=== PATIENT | female | born 1990 | race Caucasian/White ===

== ENCOUNTER 2018-03-13 19:26 | Emergency (ER) | payer SELFPAY ==
[2018-03-13 19:28] VITALS: BP 110/86; PULSE 114; RESP 16; TEMP 37.1; O2SAT 98; BMI 20.3
[2018-03-13] MEDS: Ondansetron ODT 4 MG Tablet PO (20:05)
[2018-03-13] MEDS: Clindamycin HCl 150 MG Capsule 300 MG PO (20:35)
--- NOTE | 2018-03-13 20:36 | ED.DCSUM_ITS ---
- ER Visit Summary Date of Service: 03/13/18 Chief Complaint: [Left upper dental pain and vomiting] History of Present Illness: The patient is a 27 F [presents the emergency department with vomiting ?4 or 5 episodes since 1:30 AM. Patient also states that she developed some left-sided facial swelling today. Patient started having dental pain about 2 days ago. Patient denies any fever. Describes minimal abdominal discomfort. Last menstrual period was 2 or 3 weeks ago. Patient denies any diarrhea. Patient denies any fever. Patient states that her brother had influenza a few weeks ago.] Physical Examination: [HEENT-PERRLA, EOMI. Cranial nerves II through XII grossly intact. TMs clear. Mucous membranes moist. No adenopathy. Patient has left upper facial swelling. Patient has tenderness over the second left upper molar with some gingival erythema noted but no discrete abscess palpated and there is no fluctuance. There is no facial cellulitis. Cardiovascular-regular rate and rhythm without murmur or ectopy Lungs-clear to auscultation, chest wall stable without crepitus or subcu emphysema Abdomen-normoactive bowel sounds, soft. Patient has some mild epigastric tenderness on palpation. There is no rebound, rigidity, or perineal signs. Extremities-intact ?4, normal range of motion, normal pulses, atraumatic] Test Results: [None indicated] Emergency Department Course and Treatment: [Was given Zofran and clindamycin. Patient was given a p.o. challenge which she tolerated well.] Treatment Plan: [Patient will be given Zofran for home as well as clindamycin and [place] for pain. Patient advised to follow-up with the dentist] Disposition: [Discharged home stable condition] Impression: [Dental abscess Vomiting] This note was generated with [employer] dictation software. It may contain incorrect words, spelling, and punctuation that were not noted in review of the chart prior to signing ED Disposition - Plan for ED Patient: Chief Complaint: Nausea/Vomiting Referrals: [facility] Doctor,Out of [Primary Care Provider] -
--- NOTE | 2018-03-13 20:36 | ED.DEP ---
ED Disposition - Plan for ED Patient: Chief Complaint: Nausea/Vomiting Instructions: ED Nausea Vomiting, ED Abscess Tooth Prescriptions: Ondansetron [Zofran Odt] 4 mg PO Q8H PRN PRN #10 tab PRN Reason: Nausea Hydrocodone/Acetaminophen [[place] 5-325 Tablet] 1 - 2 ea PO 4X/DAY PRN PRN 3 Days #12 tab PRN Reason: Pain Clindamycin HCl [Cleocin] 300 mg PO Q6H #40 cap Referrals: [facility],Out of [Primary Care Provider] - Additional Instructions: see a dentist
[2018-03-13 21:28] VITALS: BP 129/77; PULSE 61; RESP 15; O2SAT 98
== END 2018-03-13 21:29 | disposition home or self-care (01) ==
PROVIDERS: Emergency Provider Emergency Medicine
DX: K04.7 Periapical abscess without sinus (principal); R11.10 Vomiting, unspecified; F32.9 Major depressive disorder, single episode, unspecified; Z79.899 Other long term (current) drug therapy
CPT/HCPCS: 99283

== ENCOUNTER 2018-04-20 21:43 | Inpatient (IN) | payer SELFPAY ==
[2018-04-20 21:45] VITALS: BP 125/68; PULSE 132; RESP 20; TEMP 36.2; O2SAT 94; BMI 22.0
--- NOTE | 2018-04-20 22:08 | ED.DCSUM_ITS ---
- ER Visit Summary Date of Service: 04/20/18 Chief Complaint: [] Nausea vomiting diarrhea and abdominal pain History of Present Illness: The patient is a 27 F with abdominal pain for the last 2 days. Gradual onset continuous squeezing discomfort. Just feels uncomfortable per patient. She has had 2 episodes of emesis this evening only. She had 7 episodes of diarrhea loose watery over the last 2 days. She thinks it could have been from a bad cappuccino. She has some mild low back soreness. No urinary symptoms. She reports a temperature of 102 this evening. She is Tylenol 3 hours ago and that resolved. Physical Examination: [] Vital signs reviewed General: Well-nourished well-developed Head: Normocephalic atraumatic Eyes: Pupils equal round and reactive to light extraocular movements intact ENT: TMs clear no hemotympanum no trauma Neck: Nontender full range of motion Cardiovascular: Regular tachycardia with normal rhythm no murmurs normal S1-S2 Respiratory: No distress clear to auscultation bilaterally chest nontender Abdomen: Soft nontender nondistended normal bowel sounds no masses Back: Nontender no CVA tenderness Extremities: Nontender active range of motion ?4 extremities no trauma Skin: Normal color no trauma Neuro alert oriented cranial nerves II through XII intact normal strength sensation reflexes Test Results: [] Emergency Department Course and Treatment: [] Given IV fluids Toradol and Zofran for her symptoms. Lab work obtained. Shows a lipase of 1660. LFTs normal except AST 14. Potassium 3.4. White count 15.7. and UA pending at this time. Patient felt much better after treatment. Still cannot give a urine she will be given a second liter fluid. At this time she still has her gallbladder but is not having any pain in that area. On reevaluation she has mild pain rated her pancreas. She does not drink alcohol and has had 2 medications. Will be discussed with the hospitalist and admitted. Treatment Plan: [] Disposition: [] Impression: [] Acute pancreatitis Acute diarrheal disease This note was generated with [employer] software. It may contain incorrect words, spelling, and punctuation that were not noted in review of the chart prior to signing ED Disposition - Plan for ED Patient: Chief Complaint: Nausea/Vomiting/Diarrhea Referrals: [facility] Doctor,Out of [Primary Care Provider] -
[2018-04-20] MEDS: Ondansetron 4 MG/2 ML Vial IV (22:16)
[2018-04-20] MEDS: Ketorolac 30 MG/ML Syringe IV (22:16)
[2018-04-20] MEDS: 0.9% Normal Saline 1,000 ML 1000 ML IV (22:16)
[2018-04-20 22:43] LABS: AST(SGOT) 14 U/L (15-37); Alanine Aminotransfer ALT/SGPT 20 U/L (13-56); Albumin, Serum 3.2 g/dL (3.2-5.0); Alkaline Phosphatase 57 U/L (45-117); Anion Gap 7 (5-15); BUN 6 mg/dL (7-18); BUN/Creat Ratio 6.4 RATIO (10-20); Bilirubin, Direct 0.12 mg/dL (0.00-0.30); Calcium,Total 8.4 mg/dL (8.5-10.1); Chloride 103 mmol/L (98-107); Creatinine, Serum 0.94 mg/dL (0.55-1.02); EST Glomerular Filtration Rate 75 mL/min (>60); Est Glom Filt Rate - Afr Amer 90 mL/min (>60); Estimated Creatinine Clearance 76.94 ml/min; Globulin 4.1 g/dL (2.2-4.2); Glucose 113 mg/dL (74-106); Lipase 1660 U/L (73-393); Potassium 3.4 mmol/L (3.5-5.1); Protein, Total 7.3 g/dL (6.4-8.2); Sodium Level 136 mmol/L (136-145)
[2018-04-20 22:48] LABS: Absolute Lymphocyte Count 1.39 X10^3/ul (0.83-4.51); Absolute Neutrophil Count 12.6 X10^3/uL (2.0-7.7); Basophil# 0.03 X10^3/uL; Basophil% 0.2 % (0-1); Eosinophil# 0.11 X10^3/uL; Eosinophils% 0.7 % (0-5); Hematocrit 41.1 % (37-47); Hemoglobin 13.6 g/dl (12.0-15.0); Lymphocyte # 1.39 X10^3/ul (4.0); Lymphocyte % 8.8 % (19-41); Mean Corp Hgb Conc 33.1 g/gl (32-36); Mean Corpuscular Hgb 27.7 pg (27.0-32.0); Mean Corpuscular Volume 83.7 fL (81-99); Mean Platelet Vol. 9.7 fl (6.2-12.0); Monocyte# 1.54 X10^3/uL; Monocyte% 9.8 % (0-10); Neutrophil # 12.59 X10^3/uL (2.7-7.7); Neutrophil % 80.1 % (47-70); Platelet Count 243 K/mm3 (150-450); RBC Distribution Width CV 13.2 % (11.6-14.6); RBC Distribution Width SD 40.3 fl (35.1-43.9); Red Blood Count 4.91 M/mm3 (4.2-5.4); White Blood Count 15.7 K/mm3 (4.4-11.0)
[2018-04-20 23:09] LABS: Differential Indicated SCAN CRITERIA MET; POSITIVE COUNT NO; POSITIVE DIFFERENTIAL YES; POSITIVE MORPHOLOGY NO
[2018-04-20 23:34] LABS: Differential Comment SCANNED
--- NOTE | 2018-04-20 23:41 | PCM.HP.STD ---
Problem List (1) Gastroenteritis Status: Acute (2) Pancreatitis Status: Acute (3) SIRS (systemic inflammatory response syndrome) Status: Acute History of Present Illness Date of Admission: 04/20/18 Chief Complaint: Intractable nausea, vomiting, diarrhea and abdominal pain. 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 Patient had been having umbilical abdominal tenderness. Patient does not feeling better and presented to the emergency room. Patient was noted to be tachycardic in the 130s. Patient did have a lipase that was 1600. Patient denies any alcohol consumption. Patient has never felt like this before. Patient denies any food poisoning but did state that she had some still coffee out of a coffee machine but nothing highly abnormal about that. 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 Review of Systems Constitutional: Reports: Chills, Fever - 102 at home. Denies: Weight Change Eyes: Denies: Blurred vision, Double vision HEENT: Denies: Head Aches, Sinus Congestion, Sinus Drainage Cardiovascular: Denies: Chest Pain, Palpitations Respiratory: Denies: Cough, Shortness of breath at rest, Sputum production Gastrointestinal: Reports: Abdominal Pain, Diarrhea, Nausea, Vomiting Genitourinary: Denies: Dysuria Gynecological: Reports: - - Last menstrual period was 3 weeks ago Musculoskeletal: Denies: Joint Pain, Joint Tenderness Skin: Denies: Rash, Wounds Neurological: Denies: Numbness, Tingling, Focal weakness Psychiatric: Reports: Depression. Denies: Anxiety Hematologic/ Lymphatic: Denies: Easy Bruising, Easy Bleeding, Hx of blood clot Comment: Otherwise all review systems are negative except for as mentioned above in the HPI and in the ROS. VTE Information - Inpt Only VTE Present on Admission: No VTE Mechan Device Prophylaxis: None VTE Pharm Prophylaxis ordered?: No Reason prophylaxis not ordered:: Procedure Not Indicated Patient Problems: Active and Suspected Problems Gastroenteritis (Acute) Pancreatitis (Acute) SIRS (systemic inflammatory response syndrome) (Acute) - Physical Exam General: Alert, No apparent distress HEENT: Atraumatic, Normocephalic Oral: Moist Mucosa, No Gingival or Mucosal Lesions/ Ulcerations Neck: No Nodes, Thyroid Normal Size and Texture Lungs: Clear to auscultation, Normal air movement, No rhonchi, No wheeze Cardiovascular: Regular rate, Regular Rhythm, Normal S1, Normal S2, No murmurs Abdomen: Bowel Sounds Present, Soft, Non-Distended, - - Epigastric abdominal tenderness Extremities: No clubbing, No edema, No Calf Tenderness Skin: No rashes, No breakdown Psych/Mental Status: Normal Affect, Appropriate Vital Signs Temp Pulse Resp BP Pulse Ox 36.2 C L 132 H 20 H 125/68 H 94 04/20/18 21:45 04/20/18 21:45 04/20/18 21:45 04/20/18 21:45 04/20/18 21:45 Oxygen Delivery Method Room Air Weight: 58.2 kg Body Mass Index (BMI) 22.0 Laboratory Tests Past 24 Hrs 04/20/18 04/20/18 22:15 22:15 WBC 15.7 H RBC 4.91 Hgb 13.6 Hct 41.1 MCV 83.7 MCH 27.7 MCHC 33.1 RDW 13.2 RDW Differential 40.3 Plt Count 243 MPV 9.7 Immature Gran % (Auto) 0.400 Neut % (Auto) 80.1 H Lymph % (Auto) 8.8 L [place] % (Auto) 9.8 Eos % (Auto) 0.7 Baso % (Auto) 0.2 Absolute Neuts (auto) 12.6 H Absolute Lymphs (auto) 1.39 Total Counted Not Reportable Differential Comment SCANNED Sodium 136 Potassium 3.4 L Chloride 103 Carbon Dioxide 26.0 Anion Gap 7 BUN 6 L Creatinine 0.94 Estim Creat Clear Calc 76.94 Est GFR (MDRD) Af Amer 90 Est GFR (MDRD) Non-Af 75 BUN/Creatinine Ratio 6.4 L Glucose 113 H Calcium 8.4 L Total Bilirubin 0.30 Direct Bilirubin 0.12 AST 14 L ALT 20 Alkaline Phosphatase 57 Total Protein 7.3 Albumin 3.2 Globulin 4.1 Lipase 1660 H Assessment/Plan All Active Problems Gastroenteritis (Acute) Pancreatitis (Acute) SIRS (systemic inflammatory response syndrome) (Acute) 1. Gastroenteritis Presumably viral Will do supportive management for now but if seems to be refractory then could consider additional studies for bacterial gastroenteritis 2. Acute pancreatitis Patient has never had pancreatitis before. She does not drink. Patient's LFTs were normal and patient is not having any right upper quadrant tenderness. I feel that pancreatitis may be just tied in with a viral etiology of her gastroenteritis. Plan is to give her IV fluids and reevaluate in the morning. If seems to be tolerating diet and her lipase is going down that I would not recommend any additional workup, however, if she does get worse or would like to be starts going up then consideration for could be for an ultrasound or CAT scan of the abdomen and pelvis. 3. Systemic inflammatory response syndrome: Secondary to above. 4. DVT prophylaxis: Patient is low risk and DVT prophylaxis is not indicated at this time. Code Visit Inpatient E&M: 51708 Init Hosp L2
[2018-04-20 23:45] LABS: Bacteria 0 SEEN /hpf (None Seen); Red Blood Cells-Urine 0 SEEN /hpf (0-5)
--- NOTE | 2018-04-20 23:47 | HP.PCM_ITS ---
Problem List (1) Gastroenteritis Status: Acute (2) Pancreatitis Status: Acute (3) SIRS (systemic inflammatory response syndrome) Status: Acute History of Present Illness Date of Admission: 04/20/18 Chief Complaint: Intractable nausea, vomiting, diarrhea and abdominal pain. 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 Patient had been having umbilical abdominal tenderness. Patient does not feeling better and presented to the emergency room. Patient was noted to be tachycardic in the 130s. Patient did have a lipase that was 1600. Patient denies any alcohol consumption. Patient has never felt like this before. Patient denies any food poisoning but did state that she had some still coffee out of a coffee machine but nothing highly abnormal about that. 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 Review of Systems Constitutional: Reports: Chills, Fever - 102 at home. Denies: Weight Change Eyes: Denies: Blurred vision, Double vision HEENT: Denies: Head Aches, Sinus Congestion, Sinus Drainage Cardiovascular: Denies: Chest Pain, Palpitations Respiratory: Denies: Cough, Shortness of breath at rest, Sputum production Gastrointestinal: Reports: Abdominal Pain, Diarrhea, Nausea, Vomiting Genitourinary: Denies: Dysuria Gynecological: Reports: - - Last menstrual period was 3 weeks ago Musculoskeletal: Denies: Joint Pain, Joint Tenderness Skin: Denies: Rash, Wounds Neurological: Denies: Numbness, Tingling, Focal weakness Psychiatric: Reports: Depression. Denies: Anxiety Hematologic/ Lymphatic: Denies: Easy Bruising, Easy Bleeding, Hx of blood clot Comment: Otherwise all review systems are negative except for as mentioned above in the HPI and in the ROS. VTE Information - Inpt Only VTE Present on Admission: No VTE Mechan Device Prophylaxis: None VTE Pharm Prophylaxis ordered?: No Reason prophylaxis not ordered:: Procedure Not Indicated Patient Problems: Active and Suspected Problems Gastroenteritis (Acute) Pancreatitis (Acute) SIRS (systemic inflammatory response syndrome) (Acute) - Physical Exam General: Alert, No apparent distress HEENT: Atraumatic, Normocephalic Oral: Moist Mucosa, No Gingival or Mucosal Lesions/ Ulcerations Neck: No Nodes, Thyroid Normal Size and Texture Lungs: Clear to auscultation, Normal air movement, No rhonchi, No wheeze Cardiovascular: Regular rate, Regular Rhythm, Normal S1, Normal S2, No murmurs Abdomen: Bowel Sounds Present, Soft, Non-Distended, - - Epigastric abdominal tenderness Extremities: No clubbing, No edema, No Calf Tenderness Skin: No rashes, No breakdown Psych/Mental Status: Normal Affect, Appropriate Vital Signs Temp Pulse Resp BP Pulse Ox 36.2 C L 132 H 20 H 125/68 H 94 04/20/18 21:45 04/20/18 21:45 04/20/18 21:45 04/20/18 21:45 04/20/18 21:45 Oxygen Delivery Method Room Air Weight: 58.2 kg Body Mass Index (BMI) 22.0 Laboratory Tests Past 24 Hrs 04/20/18 04/20/18 22:15 22:15 WBC 15.7 H RBC 4.91 Hgb 13.6 Hct 41.1 MCV 83.7 MCH 27.7 MCHC 33.1 RDW 13.2 RDW Differential 40.3 Plt Count 243 MPV 9.7 Immature Gran % (Auto) 0.400 Neut % (Auto) 80.1 H Lymph % (Auto) 8.8 L [place] % (Auto) 9.8 Eos % (Auto) 0.7 Baso % (Auto) 0.2 Absolute Neuts (auto) 12.6 H Absolute Lymphs (auto) 1.39 Total Counted Not Reportable Differential Comment SCANNED Sodium 136 Potassium 3.4 L Chloride 103 Carbon Dioxide 26.0 Anion Gap 7 BUN 6 L Creatinine 0.94 Estim Creat Clear Calc 76.94 Est GFR (MDRD) Af Amer 90 Est GFR (MDRD) Non-Af 75 BUN/Creatinine Ratio 6.4 L Glucose 113 H Calcium 8.4 L Total Bilirubin 0.30 Direct Bilirubin 0.12 AST 14 L ALT 20 Alkaline Phosphatase 57 Total Protein 7.3 Albumin 3.2 Globulin 4.1 Lipase 1660 H Assessment/Plan All Active Problems Gastroenteritis (Acute) Pancreatitis (Acute) SIRS (systemic inflammatory response syndrome) (Acute) 1. Gastroenteritis * Presumably viral * Will do supportive management for now but if seems to be refractory then could consider additional studies for bacterial gastroenteritis 2. Acute pancreatitis * Patient has never had pancreatitis before. She does not drink. Patient's LFTs were normal and patient is not having any right upper quadrant tenderness. I feel that pancreatitis may be just tied in with a viral etiology of her gastroenteritis. * Plan is to give her IV fluids and reevaluate in the morning. If seems to be tolerating diet and her lipase is going down that I would not recommend any additional workup, however, if she does get worse or would like to be starts going up then consideration for could be for an ultrasound or CAT scan of the abdomen and pelvis. 3. Systemic inflammatory response syndrome: Secondary to above. 4. DVT prophylaxis: Patient is low risk and DVT prophylaxis is not indicated at this time. Code Visit Inpatient E&M: 08154 Init Hosp L2
[2018-04-20 23:53] VITALS: BP 105/80; PULSE 80; RESP 18; O2SAT 98
[2018-04-20 23:53] LABS: Color, Urine Yellow (Yellow); Glucose, Dipstick Normal (Normal); Leukocyte Esterase-Dipstick 25 /ul (Negative); Nitrite-Dipstick Negative (Negative); Occult Blood-Urine 25 /ul (Negative); Protein-Dipstick 30 mg/dl (Negative); Urine Clarity Sl. Cloudy (Clear); Urine Urobilinogen Normal (Normal)
[2018-04-20 23:55] LABS: Internal QC Validated? YES +Cl - CLEAR BKGD; Pregnancy, Urine Negative Negative
[2018-04-20 23:56] LABS: Urine Bilirubin Dipstick 1 mg/dL (Negative)
[2018-04-20 23:57] LABS: Ketone-Dipstick 150 mg/dl (Negative)
[2018-04-21] VITALS (8 sets, daily range): BP systolic 101–118; BP diastolic 60–74; PULSE 95–130; RESP 16–18; TEMP 36.8–39.4; O2SAT 96–100; BMI 23.1
[2018-04-21] LABS: Squamous Epithelial Cells - UA 10-25 SEEN /hpf (5-10); White Blood Cells 0-5 SEEN /hpf (0-5)
[2018-04-21 00:01] LABS: Mucous, Urine 3+ /hpf (<or=2+)
[2018-04-21] MEDS: FLUoxetine 20 MG Capsule 40 MG PO ×2 (01:05→09:55)
[2018-04-21] MEDS: 0.9% Normal Saline 1,000 ML 150 ML IV ×4 (01:05→22:30)
[2018-04-21] MEDS: Morphine 2 MG/ML Syringe IV ×5 (01:05→22:30)
[2018-04-21] MEDS: 0.9% NaCl Peripheral Flush Adult/Peds IV ×2 (01:18→16:16)
[2018-04-21] MEDS: Acetaminophen 325 MG Tablet 650 MG PO ×2 (05:07→11:31)
[2018-04-21] MEDS: oxyCODONE 5 MG Tablet PO (05:10)
[2018-04-21 06:00] LABS: Absolute Lymphocyte Count 0.81 X10^3/ul (0.83-4.51); Absolute Neutrophil Count 7.6 X10^3/uL (2.0-7.7); Basophil# 0.02 X10^3/uL; Basophil% 0.2 % (0-1); Eosinophil# 0.04 X10^3/uL; Eosinophils% 0.4 % (0-5); Hematocrit 36.2 % (37-47); Hemoglobin 11.6 g/dl (12.0-15.0); Lymphocyte # 0.81 X10^3/ul (4.0); Lymphocyte % 8.2 % (19-41); Mean Corpuscular Hgb 27.1 pg (27.0-32.0); Mean Corpuscular Volume 84.6 fL (81-99); Mean Platelet Vol. 9.2 fl (6.2-12.0); Monocyte# 1.39 X10^3/uL; Neutrophil # 7.64 X10^3/uL (2.7-7.7); Neutrophil % 77.1 % (47-70); Platelet Count 199 K/mm3 (150-450); RBC Distribution Width CV 13.4 % (11.6-14.6); RBC Distribution Width SD 41.1 fl (35.1-43.9); Red Blood Count 4.28 M/mm3 (4.2-5.4); White Blood Count 9.9 K/mm3 (4.4-11.0)
[2018-04-21 06:08] LABS: POSITIVE COUNT NO; POSITIVE DIFFERENTIAL NO; POSITIVE MORPHOLOGY NO
[2018-04-21 06:41] LABS: Anion Gap 7 (5-15); BUN 5 mg/dL (7-18); BUN/Creat Ratio 6.6 RATIO (10-20); Chloride 107 mmol/L (98-107); Cholesterol 105 mg/dL (200); Creatinine, Serum 0.76 mg/dL (0.55-1.02); EST Glomerular Filtration Rate 95 mL/min (>60); Est Glom Filt Rate - Afr Amer 116 mL/min (>60); Estimated Creatinine Clearance 91.16 ml/min; Glucose 112 mg/dL (74-106); High Density Lipoprotein 45 mg/dL; Lipase 1822 U/L (73-393); Potassium 3.3 mmol/L (3.5-5.1); Sodium Level 135 mmol/L (136-145); Triglycerides 80 mg/dL; Very Low Density Lipoprotein 16 mg/dL (5-40)
[2018-04-21] MEDS: Ondansetron 4 MG/2 ML Vial IV ×2 (08:35→16:16)
[2018-04-21] MEDS: Famotidine 20 MG Tablet PO ×2 (09:55→22:38)
[2018-04-21 10:04] LABS: Pathologist Review Reviewed
--- NOTE | 2018-04-21 11:31 | CT_ITS ---
STUDY: CT ABDOMEN AND PELVIS WITH CONTRAST REASON FOR EXAM: Female, 27 years old. Pain. Nausea and vomiting. RADIATION DOSAGE (If Supplied By Facility): CTDIvol = ( 12.78 ) mGy, DLP = ( 584.28 ) mGycm TECHNIQUE: Transaxial images were obtained from the dome of the diaphragm to the symphysis pubis without oral contrast. 100 ml of Isovue 300 contrast was administered. Sagittal and coronal images were reconstructed. Individualized dose optimization techniques were used for this CT. COMPARISON: None. FINDINGS: The visualized lung bases are unremarkable. The visualized portions of the heart are within normal limits. Normal liver. Normal gallbladder and extrahepatic biliary system. Normal spleen. Normal pancreas. Normal bilateral adrenal glands. Normal right kidney. Normal left kidney. Normal visualized stomach. Normal small intestine. Diffuse wall thickening of the colon. There are surgical clips in the region of the appendix consistent with a prior appendectomy. Normal abdominal aorta. Normal inferior vena cava. Normal retroperitoneum. Normal urinary bladder. Normal visualized uterus. Normal abdominal wall. Normal osseous structures. CT/Abdomen/Pelvis W IV Cont ONLY IMPRESSION: Colitis with diffuse wall thickening could be infectious or inflammatory. No obstruction. Electronically Signed: Ryan Bonilla MD at 12:30 EDT , Service support ,
--- NOTE | 2018-04-21 11:33 | PCM.PN.HOSP ---
Patient Problems: Active and Suspected Problems (Last Updated 04/20/18 @ 23:42 by Juan J Riggins DO) Gastroenteritis (Acute) Pancreatitis (Acute) SIRS (systemic inflammatory response syndrome) (Acute) Subjective: Cc: Abdominal pain, diarrhea Objective: This is a 27-year-old female who presented with abdominal pain and diarrhea, CT scan of the abdomen and pelvis showed colitis with diffuse wall thickening , diffuse positive. Vitals/I&O's: Vital Signs Temp Pulse Resp BP Pulse Ox 99.6 F H 104 H 16 101/64 96 04/21/18 07:28 04/21/18 07:28 04/21/18 07:28 04/21/18 07:28 04/21/18 07:28 Oxygen Delivery Method Room Air Weight: 59.2 kg Body Mass Index (BMI) 23.1 Intake and Output for Last 24 Hours 04/19/18 04/20/18 04/21/18 23:59 23:59 23:59 Intake Total 1900 / 1900 Output Total 275 / 275 Balance 1625 / 1625 General: Alert, Oriented x3 Oral: Moist Mucosa Neck: Supple, No JVD Lungs: Clear to auscultation Cardiovascular: Regular rate, Normal S1, Normal S2 Abdomen: Bowel Sounds Present, Non Tender Extremities: No edema Laboratory Results 04/21/18 05:40: WBC 9.9, RBC 4.28, Hgb 11.6 L, Hct 36.2 L, MCV 84.6, MCH 27.1, MCHC 32.0, RDW 13.4, RDW Differential 41.1, Plt Count 199, MPV 9.2, Immature Gran % (Auto) 0.100, Neut % (Auto) 77.1 H, Lymph % (Auto) 8.2 L, Trigg % (Auto) 14.0 H, Eos % (Auto) 0.4, Baso % (Auto) 0.2, Absolute Neuts (auto) 7.6, Absolute Lymphs (auto) 0.81 L, Total Counted Not Reportable 04/21/18 05:40: Sodium 135 L, Potassium 3.3 L, Chloride 107, Carbon Dioxide 21.0, Anion Gap 7, BUN 5 L, Creatinine 0.76, Estim Creat Clear Calc 91.16, Est GFR (MDRD) Af Amer 116, Est GFR (MDRD) Non-Af 95, BUN/Creatinine Ratio 6.6 L, Glucose 112 H, Calcium 7.0 L, Triglycerides 80, Cholesterol 105, LDL Cholesterol 44, VLDL Cholesterol 16, HDL Cholesterol 45, Lipase 1822 H Current Medications Acetaminophen (Tylenol) 650 mg PO Q6H PRN PRN PRN Reason: Mild Pain (1-3)/Temp > 100.7 F Last Admin: 04/21/18 11:31 Dose: 650 mg Albuterol Sulfate (Ventolin Hfa (Sp)) 1 puff INHALATION Q6H PRN PRN PRN Reason: DYSPNEA/WHEEZING/SOB Famotidine (Pepcid) 20 mg PO BID [facility] Last Admin: 04/21/18 09:55 Dose: 20 mg Fluoxetine HCl (Prozac) 40 mg PO DAILY [facility] Last Admin: 04/21/18 09:55 Dose: 40 mg Sodium Chloride () 1,000 mls @ 150 mls/hr IV .Q6H40M [facility] Last Admin: 04/21/18 07:09 Dose: 150 mls/hr Magnesium Hydroxide (Milk Of Magnesia) 30 ml PO DAILY PRN PRN PRN Reason: Constipation Morphine Sulfate () 2 - 4 mg IV Q4H PRN PRN PRN Reason: MOD-SEVERE PAIN (4-10/10) Last Admin: 04/21/18 08:35 Dose: 2 mg Morphine Sulfate () 2 - 4 mg IV Q4H PRN PRN PRN Reason: MOD-SEVERE PAIN (4-10/10) Nutritional Formula (Lactose Free) (Ensure Clear) 120 ml PO 4X/DAY [facility] Ondansetron HCl (Zofran) 4 mg IV Q8H PRN PRN PRN Reason: NAUSEA Last Admin: 04/21/18 08:35 Dose: 4 mg Oxycodone HCl (Oxyir) 5 - 10 mg PO Q4H PRN PRN PRN Reason: MOD-SEVERE PAIN (4-10/10) Last Admin: 04/21/18 05:10 Dose: 5 mg Sodium Chloride () 5 - 30 ml IV UD PRN PRN Reason: SALINE FLUSH Last Admin: 04/21/18 01:18 Dose: 10 ml Medical Necessity - Tobacco Use Smoking Status: Former smoker Tobacco Use: Non-smoker Assessment/Plan All Active Problems (Last Updated 04/20/18 @ 23:42 by Juan J Riggins DO) Gastroenteritis (Acute) Pancreatitis (Acute) SIRS (systemic inflammatory response syndrome) (Acute) 1. Acute C. difficile colitis; we have started the patient on oral Vancocin 2. Elevated lipase consistent with pancreatitis; may be related to infectious process above. 3. Dehydration; continue IV hydration. 4. Early sepsis; will obtain lactic acid level, will continue on aggressive IV fluids. 5. Early ambulation for DVT prophylaxis. 6. Hypokalemia; this will be replaced with KCl. Code Visit Inpatient E&M: 14988 Subs Hosp L3
--- NOTE | 2018-04-21 11:56 | NURSING ---
PT DOWN TO CT SCAN IN WC
[2018-04-21 12:19] LABS: Lactic Acid 1.5 mmol/L (0.4-2.0)
--- NOTE | 2018-04-21 13:37 | CASEMGMT ---
Social Work Note Charge Nurse Ami informed this worker that MIKE Bauer had mentioned that pt had scars on her arm from cutting. SW in to talk with pt. SW introduced self and role at [facility]. Pt is alert and orientated x4. Pt states that she lives with her parents and was previously independent with ADLs. Pt states that she has a good relationship with her parents, sister, and Aunt stating that they are her support for her. Pt states that she doesn't have any insurance. SW asked pt if she had filled out Medicaid application recently. Pt states that about 6 months ago she filled out an application but was denied Medicaid. SW asked pt if she would like a Medicaid Application to fill out again. Pt states that she would like a Medicaid application. Substance Abuse Hx: Pt denied Mental Health Hx: Pt states that she has a history of anxiety and depression. Pt states that she currently takes medication prescribed through her PCP for her anxiety and depression. Pt states that she has a past history of self harm including cutting. Pt states that it has been a long time since she did self harm behavior. Pt denied any current depressive symptoms. Pt denied suicidal thoughts/plans/ideations. Pt denied currently being involved with counseling services and denied counseling resources. Pt states that her coping skills including talking to her parents and her family. [facility] provided Medicaid application to pt. SW informed pt that pt can fill out application in Hospital and it can be faxed to [employer] or pt can take application home and fill it out and submit it to [employer]. Pt states understanding. Pt denied wanting to fill out medicaid application at this time. Plan: Discharge home with support of her family Adrienne Rousees NATURAL GAS TECHNICIAN, WIND PROJECT MANAGER
[2018-04-22 03:32] VITALS: BP 108/72; PULSE 98; RESP 16; TEMP 36.5; O2SAT 98
[2018-04-22] MEDS: Morphine 2 MG/ML Syringe IV (06:06)
[2018-04-22] MEDS: 0.9% NaCl Peripheral Flush Adult/Peds IV (06:06)
[2018-04-22] MEDS: 0.9% Normal Saline 1,000 ML 150 ML IV (06:07)
[2018-04-22 09:35] VITALS: BP 106/76; PULSE 98; RESP 18; TEMP 37; O2SAT 96
[2018-04-22] MEDS: FLUoxetine 20 MG Capsule 40 MG PO (10:32)
[2018-04-22] MEDS: Famotidine 20 MG Tablet PO ×2 (10:32→21:51)
[2018-04-22] MEDS: oxyCODONE 5 MG Tablet PO (10:33)
[2018-04-22] MEDS: 0.9% Normal Saline 1,000 ML 30 ML IV (12:45)
[2018-04-22 13:51] LABS: Lipase 192 U/L (73-393)
--- NOTE | 2018-04-22 14:32 | PCM.PN.HOSP ---
Patient Problems: Active and Suspected Problems (Last Updated 04/20/18 @ 23:42 by Juan J Riggins DO) Gastroenteritis (Acute) Pancreatitis (Acute) SIRS (systemic inflammatory response syndrome) (Acute) Subjective: CC: Follow-up on C. difficile colitis. Objective: This is a 27-year-old female who presented with abdominal pain and diarrhea, CT scan of the abdomen and pelvis showed colitis with diffuse wall thickening , diffuse positive. Had taking antibiotics for 3 weeks for acute sinusitis. She is receiving IV Flagyl and oral Vancocin, she is improving. Vitals/I&O's: Vital Signs Temp Pulse Resp BP Pulse Ox 98.6 F 98 18 106/76 96 04/22/18 09:35 04/22/18 09:35 04/22/18 09:35 04/22/18 09:35 04/22/18 09:35 Oxygen Delivery Method Room Air Weight: 59.2 kg Body Mass Index (BMI) 23.1 Intake and Output for Last 24 Hours 04/20/18 04/21/18 04/22/18 23:59 23:59 23:59 Intake Total 4192 / 4192 3022 / 3022 Output Total 1675 / 1675 350 / 350 Balance 2517 / 2517 2672 / 2672 General: Alert, Cooperative Oral: Moist Mucosa Neck: Supple Lungs: Clear to auscultation Cardiovascular: Regular rate, Normal S1 Microbiology Past 72 Hours 04/21/18 13:20 Stool C. difficile DNA Amplification - Final Laboratory Results 04/22/18 12:55: Lipase 192 Current Medications Acetaminophen (Tylenol) 650 mg PO Q6H PRN PRN PRN Reason: Mild Pain (1-3)/Temp > 100.7 F Last Admin: 04/21/18 11:31 Dose: 650 mg Albuterol Sulfate (Ventolin Aerosols) 2.5 mg INHALATION Q4H PRN PRN PRN Reason: SOB/WHEEZING Famotidine (Pepcid) 20 mg PO BID [facility] Last Admin: 04/22/18 10:32 Dose: 20 mg Fluoxetine HCl (Prozac) 40 mg PO DAILY [facility] Last Admin: 04/22/18 10:32 Dose: 40 mg Metronidazole (Flagyl) 500 mg in 100 mls @ 100 mls/hr IV Q6 [facility] Last Admin: 04/22/18 12:20 Dose: 100 mls/hr Sodium Chloride () 1,000 mls @ 30 mls/hr IV .[id number] [facility] Magnesium Hydroxide (Milk Of Magnesia) 30 ml PO DAILY PRN PRN PRN Reason: Constipation Morphine Sulfate () 2 - 4 mg IV Q4H PRN PRN PRN Reason: MOD-SEVERE PAIN (4-10/10) Last Admin: 04/22/18 06:06 Dose: 2 mg Morphine Sulfate () 2 - 4 mg IV Q4H PRN PRN PRN Reason: MOD-SEVERE PAIN (4-10/10) Nutritional Formula (Lactose Free) (Ensure Clear) 120 ml PO 4X/DAY [facility] Last Admin: 04/22/18 12:46 Dose: Not Given Ondansetron HCl (Zofran) 4 mg IV Q8H PRN PRN PRN Reason: NAUSEA Last Admin: 04/21/18 16:16 Dose: 4 mg Oxycodone HCl (Oxyir) 5 - 10 mg PO Q4H PRN PRN PRN Reason: MOD-SEVERE PAIN (4-10/10) Last Admin: 04/22/18 10:33 Dose: 10 mg Sodium Chloride () 5 - 30 ml IV UD PRN PRN Reason: SALINE FLUSH Last Admin: 04/22/18 06:06 Dose: 10 ml Vancomycin HCl (Vancomycin 125mg/5ml Susp) 125 mg PO Q6 [facility] Last Admin: 04/22/18 12:20 Dose: 125 mg Medical Necessity - Tobacco Use Smoking Status: Former smoker Tobacco Use: Non-smoker Assessment/Plan All Active Problems (Last Updated 04/20/18 @ 23:42 by Juan J Riggins DO) Gastroenteritis (Acute) Pancreatitis (Acute) SIRS (systemic inflammatory response syndrome) (Acute) 1. Acute C. difficile colitis; we will continue on both oral Vancocin and IV Flagyl for now but she will be discharged on oral Vancocin . 2. Elevated lipase consistent with pancreatitis; may be related to infectious process above. 3. Dehydration; he is well hydrated will heplock IV fluids 4. Early sepsis; improved. 5. Early ambulation for DVT prophylaxis. 6. Hypokalemia; this will be replaced with KCl. Will Check labs in a.m.
--- NOTE | 2018-04-22 14:37 | PN_ITS ---
Patient Problems: Active and Suspected Problems (Last Updated 04/20/18 @ 23:42 by Juan J Riggins DO ) Gastroenteritis (Acute) Pancreatitis (Acute) SIRS (systemic inflammatory response syndrome) (Acute) Subjective: CC: Follow-up on C. difficile colitis. Objective: This is a 27-year-old female who presented with abdominal pain and diarrhea, CT scan of the abdomen and pelvis showed colitis with diffuse wall thickening , diffuse positive. Had taking antibiotics for 3 weeks for acute sinusitis. She is receiving IV Flagyl and oral Vancocin, she is improving. Vitals/I&O's: Vital Signs Temp Pulse Resp BP Pulse Ox 98.6 F 98 18 106/76 96 04/22/18 09:35 04/22/18 09:35 04/22/18 09:35 04/22/18 09:35 04/22/18 09:35 Oxygen Delivery Method Room Air Weight: 59.2 kg Body Mass Index (BMI) 23.1 Intake and Output for Last 24 Hours 04/20/18 04/21/18 04/22/18 23:59 23:59 23:59 Intake Total 4192 / 4192 3022 / 3022 Output Total 1675 / 1675 350 / 350 Balance 2517 / 2517 2672 / 2672 General: Alert, Cooperative Oral: Moist Mucosa Neck: Supple Lungs: Clear to auscultation Cardiovascular: Regular rate, Normal S1 Microbiology Past 72 Hours 04/21/18 13:20 Stool C. difficile DNA Amplification - Final Laboratory Results 04/22/18 12:55: Lipase 192 Current Medications Acetaminophen (Tylenol) 650 mg PO Q6H PRN PRN PRN Reason: Mild Pain (1-3)/Temp > 100.7 F Last Admin: 04/21/18 11:31 Dose: 650 mg Albuterol Sulfate (Ventolin Aerosols) 2.5 mg INHALATION Q4H PRN PRN PRN Reason: SOB/WHEEZING Famotidine (Pepcid) 20 mg PO BID [facility] Last Admin: 04/22/18 10:32 Dose: 20 mg Fluoxetine HCl (Prozac) 40 mg PO DAILY [facility] Last Admin: 04/22/18 10:32 Dose: 40 mg Metronidazole (Flagyl) 500 mg in 100 mls @ 100 mls/hr IV Q6 [facility] Last Admin: 04/22/18 12:20 Dose: 100 mls/hr Sodium Chloride () 1,000 mls @ 30 mls/hr IV .[id number] [facility] Magnesium Hydroxide (Milk Of Magnesia) 30 ml PO DAILY PRN PRN PRN Reason: Constipation Morphine Sulfate () 2 - 4 mg IV Q4H PRN PRN PRN Reason: MOD-SEVERE PAIN (4-10/10) Last Admin: 04/22/18 06:06 Dose: 2 mg Morphine Sulfate () 2 - 4 mg IV Q4H PRN PRN PRN Reason: MOD-SEVERE PAIN (4-10/10) Nutritional Formula (Lactose Free) (Ensure Clear) 120 ml PO 4X/DAY [facility] Last Admin: 04/22/18 12:46 Dose: Not Given Ondansetron HCl (Zofran) 4 mg IV Q8H PRN PRN PRN Reason: NAUSEA Last Admin: 04/21/18 16:16 Dose: 4 mg Oxycodone HCl (Oxyir) 5 - 10 mg PO Q4H PRN PRN PRN Reason: MOD-SEVERE PAIN (4-10/10) Last Admin: 04/22/18 10:33 Dose: 10 mg Sodium Chloride () 5 - 30 ml IV UD PRN PRN Reason: SALINE FLUSH Last Admin: 04/22/18 06:06 Dose: 10 ml Vancomycin HCl (Vancomycin 125mg/5ml Susp) 125 mg PO Q6 [facility] Last Admin: 04/22/18 12:20 Dose: 125 mg Medical Necessity - Tobacco Use Smoking Status: Former smoker Tobacco Use: Non-smoker Assessment/Plan All Active Problems (Last Updated 04/20/18 @ 23:42 by Juan J Riggins DO) Gastroenteritis (Acute) Pancreatitis (Acute) SIRS (systemic inflammatory response syndrome) (Acute) 1. Acute C. difficile colitis; we will continue on both oral Vancocin and IV Flagyl for now but she will be discharged on oral Vancocin . 2. Elevated lipase consistent with pancreatitis; may be related to infectious process above. 3. Dehydration; he is well hydrated will heplock IV fluids 4. Early sepsis; improved. 5. Early ambulation for DVT prophylaxis. 6. Hypokalemia; this will be replaced with KCl. Will Check labs in a.m.
[2018-04-22 21:00] VITALS: BP 119/78; PULSE 97; RESP 18; TEMP 36.6; O2SAT 100
[2018-04-23 03:00] VITALS: BP 121/73; PULSE 92; RESP 16; TEMP 36.8; O2SAT 97
[2018-04-23 07:05] LABS: Anion Gap 6 (5-15); BUN 4 mg/dL (7-18); BUN/Creat Ratio 6.8 RATIO (10-20); Calcium,Total 7.1 mg/dL (8.5-10.1); Chloride 109 mmol/L (98-107); Creatinine, Serum 0.59 mg/dL (0.55-1.02); EST Glomerular Filtration Rate 129 mL/min (>60); Est Glom Filt Rate - Afr Amer 156 mL/min (>60); Estimated Creatinine Clearance 117.43 ml/min; Glucose 116 mg/dL (74-106); Lipase 337 U/L (73-393); Potassium 3.4 mmol/L (3.5-5.1); Sodium Level 141 mmol/L (136-145)
[2018-04-23 09:00] VITALS: BP 120/74; PULSE 97; RESP 18; TEMP 36.8; O2SAT 95
--- NOTE | 2018-04-23 10:42 | DS.PCM_ITS ---
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 Patient had been having umbilical abdominal tenderness. Patient does not feeling better and presented to the emergency room. Patient was noted to be tachycardic in the 130s. Patient did have a lipase that was 1600. Patient denies any alcohol consumption. Patient has never felt like this before. Patient denies any food poisoning but did state that she had some still coffee out of a coffee machine but nothing highly abnormal about that 1. Acute C. difficile colitis; we will continue on both oral Vancocin complete 14 days of total antibiotic therapy.. 2. Elevated lipase consistent with pancreatitis; may be related to infectious process above. 3. Dehydration; she is well now adequately hydrated. 4. Early sepsis; now resolved 5. Hypokalemia; replaced with oral potassium chloride. [] Discharge Diet: No Restrictions Home Medications: Medications to take at Discharge Fluoxetine HCl [Prozac] 40 mg PO DAILY 03/13/18 Albuterol Inhaler [Ventolin Hfa] 04/21/18 Acetaminophen [Tylenol Tablet] 650 mg PO Q6H PRN PRN tablet 04/23/18 Vancomcyin 125 MG/ 5 ML Susp [Vancomycin 125mg/5mL Susp] 125 mg PO Q6 12 Days po.syringe 04/23/18 Following Prescrptions Were Given to Patient: Vancomcyin 125 MG/ 5 ML Susp [Vancomycin 125mg/5mL Susp] 125 mg PO Q6 12 Days po.syringe Primary Care Physician: Della Beltran,Out of [Primary Care Provider] - In 1 Week Disposition: Home Patient Condition:: Good Medical Necessity - Tobacco Use Smoking Status: Former smoker Tobacco Use: Non-smoker Meaningful Use Info Meaningful Use Diagnoses (Choose all that apply): None applicable Code Visit Inpatient E&M: 43325 Disch Hosp
--- NOTE | 2018-04-23 10:43 | PCM.DC ---
- Discharge Diagnoses Current Active Problems: Current Active and Chronic Problems (Last Updated 04/20/18 @ 23:42 by Juan J Riggins DO) Gastroenteritis (Acute) Pancreatitis (Acute) SIRS (systemic inflammatory response syndrome) (Acute) You will use the following diet at home:: Regular Discharge Activity: Return to Normal Activity Allergies/Adverse Reactions: Allergies No Known Allergies Allergy (Verified 04/20/18 21:47) Medications to take at Discharge Fluoxetine HCl [Prozac] 40 mg PO DAILY 03/13/18 Albuterol Inhaler [Ventolin Hfa] 04/21/18 Acetaminophen [Tylenol Tablet] 650 mg PO Q6H PRN PRN tablet 04/23/18 Vancomcyin 125 MG/ 5 ML Susp [Vancomycin 125mg/5mL Susp] 125 mg PO Q6 12 Days po.syringe 04/23/18 The following prescriptions were given: Vancomcyin 125 MG/ 5 ML Susp [Vancomycin 125mg/5mL Susp] 125 mg PO Q6 12 Days po.syringe Primary Care Physician: Della Beltran,Out of [Primary Care Provider] - In 1 Week Proposed Discharge Date: 04/23/18
[2018-04-23] MEDS: FLUoxetine 20 MG Capsule 40 MG PO (10:56)
[2018-04-23] MEDS: Famotidine 20 MG Tablet PO (10:56)
--- NOTE | 2018-04-23 11:17 | PCA ---
rn in with pt
== END 2018-04-23 11:54 | disposition home or self-care (01) | DRG 371 ==
LOC: ED 23:01 → MS3 23:52
PROVIDERS: Emergency Provider Emergency Medicine; Visit Provider Internal Medicine
DX: A04.72 Enterocolitis due to Clostridium difficile, not specified as recurrent (principal); K85.90 Acute pancreatitis without necrosis or infection, unspecified; A41.9 Sepsis, unspecified organism; E86.0 Dehydration; E87.6 Hypokalemia
CPT/HCPCS: 36415; 74177; 80048; 80061; 80076; 81001; 81025; 83605; 83690; 85025; 87177; 87209; 87493; 97802; 99282; J7030; Q9967; A4216; J2405